=== PATIENT | male | born 1970 | race Caucasian/White ===

== ENCOUNTER 2017-09-19 10:17 | Emergency (ER) | payer MEDICAID ==
[~2017-09-19] VITALS: Ht 200.7 cm; Wt 95.0 kg
[~2017-09-19 10:17] MED LIST: MULT-342 PO
[2017-09-19 10:26] VITALS: BP 143/89
[2017-09-19] MEDS ORDERED: IBUP-1984 PO (11:02)
[2017-09-19] MEDS ORDERED: ibuprofen tablet 400 MG TABLET PO ONE (11:05)
== END 2017-09-19 11:22 | disposition home or self-care (01) ==
LOC: ER 10:17
DX: R51 Headache (principal); G89.29 Other chronic pain; M54.2 Cervicalgia; F12.10 Cannabis abuse, uncomplicated; Z59.0 Homelessness; Z56.0 Unemployment, unspecified
CPT/HCPCS: 99282

== ENCOUNTER 2018-03-27 18:20 | Emergency (ER) | payer MEDICAID ==
[~2018-03-27] VITALS: Ht 193 cm; Wt 94.0 kg
[2018-03-27] MEDS ORDERED: HYDROcodone/acetaminophen 5mg/325mg tablet PO ONE (19:00)
[2018-03-27 19:30] VITALS: BP 128/68
== END 2018-03-27 19:32 | disposition home or self-care (01) ==
LOC: ER 18:21
DX: S62.92XA Unspecified fracture of left hand, initial encounter for closed fracture (principal); R22.1 Localized swelling, mass and lump, neck; R51 Headache; G89.29 Other chronic pain; F12.90 Cannabis use, unspecified, uncomplicated; F41.9 Anxiety disorder, unspecified; F32.9 Major depressive disorder, single episode, unspecified; Z56.0 Unemployment, unspecified; Z60.2 Problems related to living alone; W22.01XA Walked into wall, initial encounter; Y93.89 Activity, other specified; Y92.89 Other specified places as the place of occurrence of the external cause; Y99.8 Other external cause status
CPT/HCPCS: 29125; 73130; 99284

== ENCOUNTER 2020-04-19 12:05 | Day surgery (SDC) | payer MEDICAID ==
[2020-04-16 13:07] LABS: BASOPHILS # (AUTO) 0.1 X10'3 (0-0.2); BASOPHILS % (AUTO) 0.6 % (0-1); EOSINOPHILS # (AUTO) 0.1 X10'3 (0-0.9); EOSINOPHILS % (AUTO) 1.2 % (0-6); LYMPHOCYTES # (AUTO) 1.6 X10'3 (1.1-4.8); LYMPHOCYTES % (AUTO) 15.2 % (21-51); MEAN CORPUSCULAR HEMOGLOBIN 30.2 PG (27.0-31.0); MEAN CORPUSCULAR HGB CONC 33.6 g/dL (33.0-36.5); MEAN CORPUSCULAR VOLUME 89.9 FL (78-98); MEAN PLATELET VOLUME 7.7 FL (7.4-10.4); MONOCYTES # (AUTO) 0.9 X10'3 (0-0.9); MONOCYTES % (AUTO) 8.4 % (2-12); NEUTROPHILS # (AUTO) 7.7 X10'3 (1.8-7.7); NEUTROPHILS % (AUTO) 74.6 % (42-75); PRE OP HEMATOCRIT 46.9 % (42.0-52.0); PRE OP HEMOGLOBIN 15.8 g/dL (14.0-17.9); PRE OP PLATELET COUNT 289 X10'3 (140-440); RED BLOOD COUNT 5.22 X10'6 (4.70-6.10)
[2020-04-16 13:16] LABS: ALBUMIN 4.3 G/DL (3.4-5.0); ALBUMIN/GLOBULIN RATIO 1.2 (1.1-1.5); ALKALINE PHOSPHATASE 69 IU/L (46-116); BLOOD UREA NITROGEN 12 MG/DL (7-18); BUN/CREATININE RATIO 13.5 (5.4-32.0); CALCIUM 9.8 MG/DL (8.5-10.1); CHLORIDE 106 MMOL/L (99-107); CREATININE 0.89 MG/DL (0.60-1.10); PRE OP ALT 56 U/L (30-65); PRE OP ANION GAP 5 (8-16); PRE OP AST 24 U/L (10-37); PRE OP BILIRUB, TOTAL 0.3 MG/DL (0.0-1.0); PRE OP GLUCOSE 98 MG/DL (70-104); PRE OP POTASSIUM 4.5 MMOL/L (3.4-5.1); PRE OP SODIUM 141 MMOL/L (135-145); TOTAL CARBON DIOXIDE 29.7 MMOL/L (24-32); TOTAL PROTEIN 7.9 G/DL (6.4-8.2); eGFR > 90 ML/MIN
[~2020-04-19] VITALS: Ht 198.1 cm; Wt 108.1 kg
[2020-04-19] VITALS (8 sets, daily range): BP systolic 102–140; BP diastolic 60–88
[~2020-04-19 12:05] MED LIST changes: +LIDOcaine 0.5% (5mg/ml) 50ml vial ONE; +MESSAGE TO NURSING PO ONE; +ceFAZolin 2gm in dextrose, iso 50 ML IV ONE; +famotidine 20mg tablet PO ONE; +ringers solution, lacted 1,000 ML IV SCH
[2020-04-19] MEDS ORDERED: midazolam 2 mg/2 ml injection ONE (12:25)
[2020-04-19] MEDS ORDERED: fentaNYL/PF 50MCG/1 ML 2ML syringe ONE ×2 (12:25→13:39)
[2020-04-19] MEDS ORDERED: ketorolac trometh. 30mg/ml inj. ONE (12:28)
[2020-04-19] MEDS ORDERED: fentaNYL/PF 50MCG/1 ML 2ML syringe IV PRN ×2 (12:35)
[2020-04-19] MEDS ORDERED: ondansetron/PF 4mg/2ml inj IV PRN (12:35)
[2020-04-19] MEDS ORDERED: morphine 4 MG/ML inj SYRINge IV PRN (12:35)
[2020-04-19] MEDS ORDERED: morphine 2 MG/ML inj. syringe IV PRN (12:35)
[2020-04-19] MEDS ORDERED: hydrALAZINE 20mg/ml inj. IV PRN (12:35)
[2020-04-19] MEDS ORDERED: labetalol 20mg/4ml (5mg/ml) syringe IV PRN (12:35)
[2020-04-19] MEDS ORDERED: ringers solution, lacted 1,000 ML IV SCH (12:35)
--- NOTE | 2020-04-19 12:38 | NUR ---
PT DRANK APPROX 8OZ WATER IN THE LAST 2HRS. DR Jamil NOTIFIED
[2020-04-19] MEDS ORDERED: sevoflurane 250ml liquid IH ONE (12:40)
[2020-04-19] MEDS ORDERED: propofol 10mg/ml 20ml vial IV ONE (12:40)
[2020-04-19] MEDS ORDERED: BUPIVAcaine/PF 2.5mg/ml (0.25%) 10ml vial IJ ONE (13:06)
--- NOTE | 2020-04-19 13:40 | NUR ---
Received from OR via BED, accompanied by Anesthesiologist DR CALIX and report given by Anesthesiolgist. PATIENT A&OX4, DENIES PAIN, V/S WNL, NEUROVASCULAR CHECKS INTACT, SCD ON, 18G BRENDA RUANO DRESSING RIGHT HIP POWDER PACK CDI Addendum: 04/19/20 at 1348 by Rod Dumont RN DOC ON WRONG PATIENT
--- NOTE | 2020-04-19 13:58 | NUR ---
Received from OR via alphonso, accompanied by Anesthesiologist Leeann and report given by Anesthesiolgist. Right hand wrist covered with dressing and splint. Elevated on ice pack. IVF LR at 100cc/hr. VS stable mask at 10L and oral airway in place.
--- NOTE | 2020-04-19 14:05 | NUR ---
Oral airway removed, patient responding to questions, comfortable and no pain
--- NOTE | 2020-04-19 14:58 | NUR ---
PATIENT HAVE VERBALIZED UNDERSTANDING OF DC INSTRUCTIONS, OPPORTUNITY TO ASK QUESTIONS GIVEN AND PATIENT COMFORTABLE WITH DC. IV TAKEN OUT WITHOUT COMPLICATION. PATIENT HAS MET ALL DC CRITERIA FOR DC HOME. PT TAKEN TO [facility] VIA WHEELCHAIR WHERE PATIENT WAS TAKEN HOME WITH ALL BELONGINGS. PT HAS DISCHARGE INSTRUCTIONS WITH HIM AND KNOWS TO FOLLOW UP IN 1-2 WEEKS.
== END 2020-04-19 14:58 | disposition home or self-care (01) ==
LOC: PAS 12:05
PROVIDERS: ATTEND Orthopaedic Surgery Hand Surgery
DX: S62.624A Displaced fracture of middle phalanx of right ring finger, initial encounter for closed fracture (principal); M19.071 Primary osteoarthritis, right ankle and foot; M19.072 Primary osteoarthritis, left ankle and foot; Z98.890 Other specified postprocedural states; F12.90 Cannabis use, unspecified, uncomplicated; F31.9 Bipolar disorder, unspecified; F41.9 Anxiety disorder, unspecified; Z79.899 Other long term (current) drug therapy; Z20.828 Contact with and (suspected) exposure to other viral communicable diseases; X58.XXXA Exposure to other specified factors, initial encounter; Y93.89 Activity, other specified; Y92.89 Other specified places as the place of occurrence of the external cause; Y99.8 Other external cause status
CPT/HCPCS: 20690; 26746; 36415; 80053; 82948; 85025; 87635; A6222; J1885; J2001; J2250; J2704; J3010; J3490; J7120; L8699; A4215; A4618; A6449; A7000

== ENCOUNTER 2021-08-10 10:43 | Emergency (ER) | payer MEDICAID ==
[~2021-08-10] VITALS: Ht 200.7 cm; Wt 110.1 kg
[~2021-08-10 10:43] MED LIST changes: -LIDOcaine 0.5% (5mg/ml) 50ml vial ONE; -MESSAGE TO NURSING PO ONE; -ceFAZolin 2gm in dextrose, iso 50 ML IV ONE; -famotidine 20mg tablet PO ONE; -ringers solution, lacted 1,000 ML IV SCH
[2021-08-10 10:50] VITALS: BP 130/85
[2021-08-10 14:21] LABS: CLARITY,URINE CLEAR (Clear); COLOR,URINE YELLOW (Yellow); GLUCOSE, URINE NEGATIVE (Neg); KETONES,URINE NEGATIVE (Neg); LEUKOCYTE ESTERASE ,URINE NEGATIVE (Neg); NITRITES, URINE NEGATIVE (Neg); OCCULT BLOOD,URINE NEGATIVE (Neg); PROTEIN,URINE NEGATIVE (Neg); UROBILINOGEN,URINE 0.2 E.U/dL (0.2-1.0)
[2021-08-10 14:24] LABS: UA COLLECTION TYPE CLN CATCH MIDSTREAM
== END 2021-08-10 15:40 | disposition home or self-care (01) ==
LOC: ER 10:44
DX: R10.84 Generalized abdominal pain (principal); R07.81 Pleurodynia; G89.29 Other chronic pain; F41.9 Anxiety disorder, unspecified; F32.A Depression, unspecified; F12.90 Cannabis use, unspecified, uncomplicated; Z60.2 Problems related to living alone; Z56.0 Unemployment, unspecified; Z79.899 Other long term (current) drug therapy
CPT/HCPCS: 76705; 81003; 99284